=== PATIENT | female | born 1945 | race Caucasian/White ===

== ENCOUNTER → 2016-09-12 | Outpatient (CLI) | payer OTHER | LOC: RAD 01:45 | DX: N63 Unspecified lump in breast (principal); N64.53 Retraction of nipple ==

== ENCOUNTER → 2016-09-29 | Outpatient (CLI) | payer OTHER | LOC: MRI 09-25 11:00 | DX: N63 Unspecified lump in breast (principal); N64.59 Other signs and symptoms in breast ==